=== PATIENT | female | born 1955 | race African-American/Black ===

== ENCOUNTER 2019-05-26 02:02 | Emergency (ER) | payer MEDICAID ==
[2019-05-26] MEDS ORDERED: IPRATROPIUM/ALBUTEROL 0.5-2.5 MG/3 ML AMPUL NEB ONE (10:08)
[2019-05-26] MEDS ORDERED: PREDNISONE 20 MG TABLET PO ONE (10:08)
[2019-05-26] MEDS ORDERED: IBUPROFEN 600 MG TABLET PO ONE (10:09)
[2019-05-26] MEDS ORDERED: ACETAMINOPHEN 325 MG TABLET PO ONE (10:09)
[2019-05-26] MEDS ORDERED: CETIRIZINE 10 MG TABLET PO ONE (10:11)
--- NOTE | 2019-05-26 10:11 | ER Document Report ---
HPI - HPI Time Seen by Provider: 05/26/19 09:47 Pain Level: 5 Context: Patient is a 63-year-old female with a past medical history of asthma who presents to the emergency department with a chief complaint of a sore throat. She states that her sore throat started yesterday. Patient states that she was a little short of breath yesterday, but used her albuterol inhaler. She denies any shortness of breath. She denies any fevers, body aches, chills, or any other symptoms. Patient is visiting from out of town. She states that she is out of her blood pressure medication, which because she did not bring her medication with her. She goes back home in 5 days. - ROS Systems Reviewed and Negative: Yes All other systems reviewed and negative - CONSTITUTIONAL Constitutional: DENIES: Fever, Chills - EENT EENT: REPORTS: Sore Throat, Nasal Drainage-Clear, Congestion. DENIES: Ear Pain, Nasal Drainage-Purulent - NEURO Neurology: DENIES: Headache - RESPIRATORY Respiratory: REPORTS: Coughing - GASTROINTESTINAL Gastrointestinal: DENIES: Abdominal Pain, Nausea, Patient vomiting - MUSCULOSKELETAL Musculoskeletal: DENIES: Extremity pain - DERM Skin Color: Normal Skin Problems: None Past Medical History - General Information source: Patient - Social History Smoking Status: Never Smoker Chew tobacco use (# tins/day): Yes - Occassionally Frequency of alcohol use: Occasional Family History: Reviewed & Not Pertinent Patient has suicidal ideation: No Patient has homicidal ideation: No - Past Medical History Cardiac Medical History: Reports: Hx Hypertension Past Surgical History: Reports: Hx Cardiac Catheterization Vertical Provider Document - CONSTITUTIONAL Agree With Documented VS: Yes Exam Limitations: No Limitations General Appearance: No Apparent Distress - HEENT HEENT: Atraumatic, Normocephalic, PERRLA - NECK Neck: Normal Inspection - RESPIRATORY Respiratory: No Respiratory Distress, Chest Non-Tender, Wheezing - Throughout all lung lara. negative: Rhonchi - CARDIOVASCULAR Cardiovascular: Regular Rate, Regular Rhythm Pulses: Normal: Radial - MUSCULOSKELETAL/EXTREMETIES Musculoskeletal/Extremeties: FROM - NEURO Level of Consciousness: Awake, Alert, Appropriate Motor/Sensory: No Motor Deficit, No Sensory Deficit - DERM Integumentary: Warm, Dry, No Rash Course - Re-evaluation Re-evalutation: 05/26/19 10:10 Patient has expiratory wheezes noted throughout all lung lara. She will receive a DuoNeb treatment, ibuprofen, Tylenol, and cetirizine. Will reassess. 05/26/19 11:30 Have reassessed the patient and her lung sounds are better. She states that she feels much better after receiving DuoNeb, ibuprofen, Tylenol, and cetirizine. Patient called her pharmacy and she is currently on hydrochlorothiazide 25 mg daily and lisinopril 20 mg daily. I will give her a 5-day supply of these medications so she has them before she goes home. Patient was thankful for her care. I will also place her on a 5-day course of prednisone, as she is having a mild asthma exacerbation. She will follow-up with her primary care provider at home. She is in agreement with this plan. I have a very low suspicion for. Follow-up precautions were given. Verbal discharge instructions were given to the patient. They verbalized understanding. They are stable for discharge. - Vital Signs Vital signs: Temp Pulse Resp BP Pulse Ox 98.0 F 80 18 144/79 H 98 05/26/19 07:26 05/26/19 07:26 05/26/19 07:26 05/26/19 07:26 05/26/19 07:26 Discharge - Discharge Clinical Impression: Sore throat Asthma Qualifiers: Asthma severity: moderate Asthma persistence: unspecified Asthma complication type: with acute exacerbation Qualified Code(s): J45.901 - Unspecified asthma with (acute) exacerbation Condition: Stable Disposition: HOME, SELF-CARE Instructions: Sore Throat ([facility]) Additional Instructions: You were seen for an asthma exacerbation. Your symptoms improved with treatment here in the emergency department. However, it is very important that you return to the emergency department immediately if you began to have worsening difficulty breathing that does not respond to your normal home nebulizers. You are also being sent home on a five-day course of steroids that you should start taking tomorrow. Please also follow closely with your primary care physician. you should also return to emergency department if you develop fever greater than 101, persistent cough, persistent vomiting, pass out, or any other symptoms that are concerning to you. Please use your albuterol-1 to 2 puffs every 4-6 hours for shortness of breath for the next 24 hours. You are also seen for sore throat. Your strep test was negative. It was sent for culture. If it is positive, you will be called in a prescription will be sent in for you. You also had your blood pressure medication refilled. Follow-up with your primary care provider on . Prescriptions: Prednisone [Deltasone 20 mg Tablet] 3 tab PO DAILY 5 Days #15 tablet Hydrochlorothiazide [Hydrodiuril 25 mg Tablet] 25 mg PO QAM #5 tablet Lisinopril 20 mg PO DAILY #5 tablet
[2019-05-26 11:48] VITALS: BP 155/97
== END 2019-05-26 11:51 | disposition home or self-care (01) ==
LOC: ER 02:02
DX: J45.901 Unspecified asthma with (acute) exacerbation (principal); J02.9 Acute pharyngitis, unspecified; R06.02 Shortness of breath; R09.89 Other specified symptoms and signs involving the circulatory and respiratory systems; R09.81 Nasal congestion; I10 Essential (primary) hypertension
CPT/HCPCS: 94640; 99283; 87070; 87880; J3490 ×3; J7512; J7620